=== PATIENT | female | born 1960 | race Caucasian/White ===

== ENCOUNTER 2024-12-20 16:14 | Inpatient (IN) | payer OTHER ==
[2024-12-20] MEDS ORDERED: ONDANSETRON 4 MG/2 ML VIAL ONE ×2 (16:31→19:12)
[2024-12-20] MEDS ORDERED: FAMOTIDINE 20 MG/2 ML VIAL IV ONE (16:31)
[2024-12-20] MEDS ORDERED: NA CHLORIDE 0.9% 1,000 ML ONE (16:32)
[2024-12-20 16:48] LABS: Absolute Lymphocytes (CBC) 2.3 K/uL (0.7-4.9); Hematocrit 35.6 % (36.0-45.0); Hemoglobin 11.6 g/dL (12.0-15.0); MCH 23.3 pg (27.0-35.0); MCHC 32.5 g/dL (32.0-36.0); MCV 71.8 fL (80-100); MPV 8.5 fL (7.6-11.3); Nucleated RBC Absolute Count 0.0 (0-0); Nucleated Red Blood Cells % 0.1 % (0-0); RBC Red Blood Cell Count 4.95 M/uL (3.86-4.86); White Blood Count 9.10 thou/uL (4.3-10.9)
[2024-12-20 17:06] LABS: ALT/SGPT 15 U/L (13-56); Albumin 3.5 g/dL (3.4-5.0); Albumin/Globulin Ratio 0.9 (1.1-1.8); Alkaline Phosphatase 71 U/L (45-117); Anion Gap 10.1 mEq/L (5.0-15.0); BUN Blood Urea Nitrogen 30 mg/dL (7-18); Globulin 3.7 g/dL (2.3-3.5); Glucose Level 132 mg/dL (74-106); Lipase 38 U/L (13-75); Potassium 4.1 mEq/L (3.5-5.1)
[2024-12-20 17:12] LABS: AST/SGOT < 10 U/L (15-37)
[2024-12-20] MEDS ORDERED: NA CHLORIDE 0.9% 250 ML ONE (18:09)
[2024-12-20] MEDS ORDERED: PANTOPRAZOLE 40 MG INJ ONE (18:09)
--- NOTE | 2024-12-20 18:21 | RAD REPORT ---
EXAM:Abdomen Angio CLINICAL HISTORY: Abdominal pain. Gastrointestinal bleeding TECHNIQUE: Computed tomography angiography of the abdomen obtained. MIPS reconstruction performed.. 100 cc Isovu e-370 administered intravenously. Axial, sagittal and coronal reconstructions were obtained. One or more of the following dose reduction techniques were used: Automated exposure control, adjustment of the mA and kV according to patient size, and iterative reconstruction. Unless otherwise specified, incidental findings do not require dedicated imaging follow-up. COMPARISON: 2013. FINDINGS: No abnormal density within the stomach, small bowel or large bowel Cholecystectomy. Liver, spleen, pancreas and right adrenal gland unremarkable . 2.1 cm left adrenal nodule Hounsfield unit 79. This has developed since 2014 Parapelvic renal cysts. Hysterectomy. No adnexal mass. No evidence of diverticulitis Spondylosis lumbar spine IMPRESSION: No evidence of active gastrointestinal bleeding during this examination 2.1 cm left adrenal nodule. This probably represents an adenoma. Recommend a nonemergent chemical pedro ft MRI
--- NOTE | 2024-12-20 18:21 | RAD REPORT ---
EXAMINATION: CT ABDOMEN AND PELVIS WITHOUT CONTRAST CLINICAL INDICATION: Abdominal pain. Gastrointestinal bleeding TECHNIQUE: CT abdomen and pelvis was performed, as per department protocol. IV contrast and oral was not administered.Axial, sagittal and coronal reconstructions were obtained. One or more of the following dose reduction techniques were used: Automated exposure control, adjustment of the mA and/o r kV according to the patient size, and/or iterative reconstruction. Unless otherwise specified, incidental findings do not require dedicated imaging follow-up. [id number]. COMPARISON: 2013. FINDINGS: No abnormal density within the stomach, small bowel or large bowel Cholecystectomy. Liver, spleen, pancreas and right adrenal gland unremarkable . 2.1 cm left adrenal nodule Hounsfield unit 79. This has developed since 2014 Parapelvic renal cysts. Hysterectomy. No adnexal mass. No evidence of diverticulitis Spondylosis lumbar spine IMPRESSION: No evidence of active gastrointestinal bleeding during this examination 2.1 cm left adrenal nodule. This probably represents an adenoma. Recommend a nonemergent chemical pedro ft MRI
--- NOTE | 2024-12-20 18:22 | RAD REPORT ---
EXAM:Pelvis Angio CLINICAL HISTORY: Gastrointestinal bleeding. Abdominal pain TECHNIQUE: Computed tomography angiography of the pelvis obtained. MIPS reconstruction performed.. 100 cc Isovue -370 administered intravenously. Axial, sagittal and coronal reconstructions were obtained. One or more of the following dose reduction techniques were used: Automated exposure control, adjustment of the mA and kV according to patient size, and iterative reconstruction. Unless otherwise specified, incidental findings do not require dedicated imaging follow-up. COMPARISON: 2013. FINDINGS: No abnormal density within the stomach, small bowel or large bowel Cholecystectomy. Liver, spleen, pancreas and right adrenal gland unremarkable . 2.1 cm left adrenal nodule Hounsfield unit 79. This has developed since 2014 Parapelvic renal cysts. Hysterectomy. No adnexal mass. No evidence of diverticulitis Spondylosis lumbar spine IMPRESSION: No evidence of active gastrointestinal bleeding during this examination 2.1 cm left adrenal nodule. This probably represents an adenoma. Recommend a nonemergent chemical pedro ft MRI
--- NOTE | 2024-12-20 18:27 | ER ---
Nurse's Notes [facility] Name: Radha Meyer Age: 64 yrs Sex: Female : 1960 Arrival Date: 12/20/2024 Time: 16:14 Bed 6 Private MD: Diagnosis: Hematemesis;Anemia, unspecified;Upper abdominal pain, unspecified Presentation: 12/20 16:16 Chief complaint: EMS states: TONED OUT DUE TO PATIENT HAVING EPIGASTRIC PAIN ONSET 2 cm10 DAYS. PT ALSO REPORTS HAVING COFFEE GROUND EMESIS. Coronavirus screen: Client denies travel out of the [place] in the last 14 days. Ebola Screen: Patient denies travel to an Ebola-affected area in the 21 days before illness onset. Initial Sepsis Screen: Does the patient meet any 2 criteria? No. Patient's initial sepsis screen is negative. Does the patient have a suspected source of infection? No. Patient's initial sepsis screen is negative. Risk Assessment: Do you want to hurt yourself or someone else? Patient reports no desire to harm self or others. Onset of symptoms was December 20, 2024. 16:16 Method Of Arrival: EMS: [facility] cm10 16:16 Acuity: KATINA 3 cm10 Triage Assessment: 16:20 General: Appears in no apparent distress. comfortable, Behavior is calm, cooperative. cm10 Pain: Complains of pain in epigastric area Pain does not radiate. Pain currently is 7 out of 10 on a pain scale. Neuro: No deficits noted. Level of Consciousness is awake, alert, obeys commands, Oriented to person, place, time, situation, Appropriate for age. Respiratory: No deficits noted. Airway is patent Respiratory effort is even, unlabored, Respiratory pattern is regular, symmetrical. GI: Reports epigastric pain, Coffee ground emesis. Historical: - Allergies: 16:19 No Known Allergies; cm10 - PMHx: 16:19 Asthma; CHRONS; diabetes mellitus; RLS; Ulcers; cm10 - PSHx: 16:19 Appendectomy; Cholecystectomy; Tonsillectomy; Total abdominal hysterectomy; cm10 - Immunization history:: Adult Immunizations up to date. - Infectious Disease History:: Denies. - Social history:: Smoking status: Patient denies any tobacco usage or history of. - Family history:: not pertinent. - Hospitalizations: : No recent hospitalization is reported. Screenin:[address] [facility] ED Fall Risk Assessment (Adult) History of falling in the last 3 months, cm10 including since admission No falls in past 3 months (0 pts) Confusion or Disorientation No (0 pts) Intoxicated or Sedated No (0 pts) Impaired Gait No (0 pts) Mobility Assist Device Used No (0 pt) Altered Elimination No (0 pt) Score/Fall Risk Level 0 - 2 = Low Risk Oriented to surroundings, Maintained a safe environment, Hourly rounding (assess needs \T\ fall precautionary measures) done. Abuse screen: Denies threats or abuse. Denies injuries from another. Nutritional screening: No deficits noted. Tuberculosis screening: No symptoms or risk factors identified. Assessment: 16:30 General: SEE TRIAGE NOTE. bp 18:44 Reassessment: Patient appears in no apparent distress at this time. Patient is alert, bp oriented x 3, equal unlabored respirations, skin warm/dry/pink. 19:27 Reassessment: Patient appears in no apparent distress at this time. Patient and/or bm8 family updated on plan of care and expected duration. Pain level reassessed. Patient is alert, oriented x 3, equal unlabored respirations, skin warm/dry/pink. Patient states feeling better. Patient states symptoms have improved. Pain: Complains of pain in left upper quadrant and left lower quadrant Pain currently is 4 out of 10 on a pain scale. Neuro: No deficits noted. Level of Consciousness is awake, alert, obeys commands, Oriented to person, place, time, situation, Appropriate for age. Cardiovascular: Denies chest pain, Heart tones S1 S2 present Capillary refill < 3 seconds in bilateral fingers Patient's skin is warm and dry. Respiratory: Airway is patent Respiratory effort is even, unlabored, Respiratory pattern is regular, symmetrical, Breath sounds are clear bilaterally. GI: Abdomen is non-distended, obese, Bowel sounds present X 4 quads. Abdomen is tender to palpation in left upper quadrant and left lower quadrant Reports nausea, Pain is 4 out of 10 on a pain scale. : No signs and/or symptoms were reported regarding the genitourinary system. EENT: No signs and/or symptoms were reported regarding the EENT system. Derm: No signs and/or symptoms reported regarding the dermatologic system. Musculoskeletal: No signs and/or symptoms reported regarding the musculoskeletal system. Vital Signs: 16:16 BP 100 / 65; Pulse 83; Resp 16; Temp 98.5(O); Pulse Ox 95% on R/A; Weight 81.65 kg; cm10 Height 5 ft. 6 in. ; Pain 7/10; 18:41 BP 98 / 56; Pulse 94; Resp 16; Pulse Ox 97% ; bp 19:27 BP 93 / 56; Pulse 75; Resp 17; Temp 98.5; Pulse Ox 97% ; Pain 4/10; bm8 21:18 BP 92 / 34; Pulse 66; Resp 18; Temp 98.5; Pulse Ox 94% ; Pain 4/10; bm8 16:16 Body Mass Index 29.05 (81.65 kg, 167.64 cm) cm10 16:16 Pain Scale: Adult cm10 19:27 Pain Scale: Adult bm8 21:18 Pain Scale: Adult bm8 Mateo Coma Score: 19:27 Eye Response: spontaneous(4). Motor Response: obeys commands(6). Verbal Response: bm8 oriented(5). Total: 15. ED Course: 16:15 Patient arrived in ED. cm10 16:15 Joaquin Mathis MD is Attending Physician. rn 16:19 Triage completed. cm10 16:20 Arm band placed on right wrist. Patient placed in an exam room, on a stretcher. cm10 16:21 Patient has correct armband on for positive identification. Bed in low position. Call cm10 light in reach. Side rails up X2. 16:22 Bella Easton, SHERRIE is Primary Nurse. cm10 16:42 Lactate w/ 2H reflex if indic. Sent. cm10 16:42 Type And Screen Sent. cm10 16:42 CBC with Diff Sent. cm10 16:42 CMP Sent. cm10 16:42 Lipase Sent. cm10 16:42 Initial lab(s) drawn, by wi, sent to lab. Inserted saline lock: 22 gauge in left cm10 forearm, using aseptic technique. Blood collected. Flushed with 10 mL NS. 16:42 Missed attempt(s): 20 gauge in left forearm. Bleeding controlled, band aid applied, cm10 catheter tip intact. 17:45 CT Abdomen - Angio In Process Unspecified. EDMS 17:45 Pelvis Angio In Process Unspecified. EDMS 17:45 Abdomen In Process Unspecified. EDMS 18:26 Julio Garcia, RN is Hospitalizing Provider. rn 19:00 Report received from olya rn. Client placed on continuous cardiac and bm8 pulse oximetry monitoring. NIBP monitoring applied. Pulse ox on. NIBP on. Door closed. Noise minimized. Warm blanket given. Pillow given. Verbal reassurance given. Head of bed elevated. 19:00 No provider procedures requiring assistance completed. Patient maintains SpO2 bm8 saturation greater than 95% on room air. 19:11 Attending Physician role handed off by Joaquin Mathis MD sp4 19:11 Osman Garcia MD is Attending Physician. sp4 21:23 Patient admitted, IV remains in place. bm8 21:24 Provided Education on: need for admission. bm8 Administered Medications: 16:41 Drug: Famotidine IVP 20 mg IVP once; dilute with 10 mL 0.9% NaCl; give over 2 minutes bp Route: IVP; Site: left forearm; 19:29 Follow up: Response: No adverse reaction bm8 16:41 Drug: Ondansetron IVP 4 mg IVP once; over 2 minutes Route: IVP; Site: left forearm; bp 19:29 Follow up: Response: No adverse reaction bm8 16:41 Drug: NS 0.9% IV 1000 ml IV at 1 bolus Per protocol; to be given as a bolus over 60 bp minutes Route: IV; Rate: 1 bolus; Site: left forearm; 19:29 Follow up: Response: No adverse reaction; IV Status: Completed infusion bm8 17:45 Drug: Pantoprazole IV 8 mg/hr IV at 25 ml/hr continuous; (Standard dilution is 80 mg in bp 250 mL NS) Route: IV; Rate: 25 ml/hr; Site: left forearm; 21:24 Follow up: Response: No adverse reaction; IV Status: Infusion continued upon admission bm8 18:41 Drug: NS 0.9% IV 500 ml 500 ml IV at 1 bolus once; to be given as a bolus over 30 bp minutes Volume: 500 ml; Route: IV; Rate: 1 bolus; Site: left forearm; 19:29 Follow up: Response: No adverse reaction; IV Status: Completed infusion bm8 19:27 Drug: Ondansetron IVP 8 mg IVP once; over 2 minutes Route: IVP; Site: left forearm; bm8 21:24 Follow up: Response: No adverse reaction bm8 Medication: 16:21 VIS not applicable for this client. cm10 Outcome: 18:26 Decision to Hospitalize by Provider. rn 21:22 Admitted to Med/surg accompanied by tech, via stretcher, room 215, with chart, bm8 21:22 Condition: stable 21:22 Instructed on follow up and referral plans. the need for admit, Demonstrated understanding of instructions, follow-up care, medications, 21:25 Patient left the ED. bm8 Signatures: Dispatcher [employer] EDMS Joaquin Mathis MD MD rn Peltier, Brian, RN RN Osman Olivera MD MD sp4 Bella Easton RN RN cm10 Navin Lainez RN RN bm8
--- NOTE | 2024-12-20 18:27 | EDPHYS ---
Physician Documentation [facility] Name: Radha Meyer Age: 64 yrs Sex: Female : 1960 Arrival Date: 12/20/2024 Time: 16:14 Bed 6 Private MD: ED Physician Osman Garcia HPI: 12/20 16:23 This 64 yrs old Female presents to ER via EMS with complaints of Epigastric Pain. rn 16:23 Patient reports epigastric abdominal pain, nausea and vomiting, reports coffee-ground rn emesis for 2 days, no longer vomiting blood today. Reports generalized weakness and malaise. No fever or chills. Has had gastric ulcers before. Denies dark stool. Reports has Crohn's disease. Historical: - Allergies: 16:19 No Known Allergies; cm10 - PMHx: 16:19 Asthma; CHRONS; diabetes mellitus; RLS; Ulcers; cm10 - PSHx: 16:19 Appendectomy; Cholecystectomy; Tonsillectomy; Total abdominal hysterectomy; cm10 - Immunization history:: Adult Immunizations up to date. - Infectious Disease History:: Denies. - Social history:: Smoking status: Patient denies any tobacco usage or history of. - Family history:: not pertinent. - Hospitalizations: : No recent hospitalization is reported. ROS: 16:23 Constitutional: Negative for fever, chills, and weight loss, Cardiovascular: Negative rn for chest pain, palpitations, and edema, Respiratory: Negative for shortness of breath, cough, wheezing, and pleuritic chest pain, Abdomen/GI: Positive for epigastric abdominal pain with nausea and vomiting MS/Extremity: Negative for injury and deformity, Neuro: Positive for generalized weakness Exam: 16:23 Constitutional: This is a well developed, well nourished patient who is awake, alert, rn and in no acute distress. Cardiovascular: Regular rate and rhythm. No pulse deficits. Respiratory: No increased work of breathing, no retractions or nasal flaring. Abdomen/GI: Soft, no focal tenderness or rebound. No peritoneal signs. 16:34 ECG was reviewed by the Attending Physician. rn Vital Signs: 16:16 BP 100 / 65; Pulse 83; Resp 16; Temp 98.5(O); Pulse Ox 95% on R/A; Weight 81.65 kg; cm10 Height 5 ft. 6 in. ; Pain 7/10; 18:41 BP 98 / 56; Pulse 94; Resp 16; Pulse Ox 97% ; bp 19:27 BP 93 / 56; Pulse 75; Resp 17; Temp 98.5; Pulse Ox 97% ; Pain 4/10; bm8 21:18 BP 92 / 34; Pulse 66; Resp 18; Temp 98.5; Pulse Ox 94% ; Pain 4/10; bm8 16:16 Body Mass Index 29.05 (81.65 kg, 167.64 cm) cm10 16:16 Pain Scale: Adult cm10 19:27 Pain Scale: Adult bm8 21:18 Pain Scale: Adult bm8 Mateo Coma Score: 19:27 Eye Response: spontaneous(4). Motor Response: obeys commands(6). Verbal Response: bm8 oriented(5). Total: 15. MDM: 16:15 Medical Screening Exam initiated rn 18:25 Differential diagnosis: Nonspecific abd pain, gastritis, viral gastroenteritis, rn gastroenteritis, upper GI bleed, gastritis, gastric ulcers. Data reviewed: vital signs, nurses notes, lab test result(s), radiologic studies, CT scan, and as a result, I will admit patient. Consideration of Admission/Observation Patient was admitted/placed on observation. Escalation of care including admission/observation considered. Care significantly affected by the following chronic conditions: Crohn's, diabetes, gastric ulcers. Counseling: I had a detailed discussion with the patient and/or guardian regarding the historical points, exam findings, and any diagnostic results supporting the discharge/admit diagnosis, lab results, radiology results, the need for further work-up and treatment in the hospital. Response to treatment: the patient's symptoms have mildly improved after treatment, and as a result, I will admit patient. 19:05 ED course: I have notified GI of consultation, have not heard back. Will be admitted to rn hospitalist service as is stable GI bleed patient that has not have active hematemesis in the last [address] angiogram does not show active bleed.. 12/20 16:21 Order name: CBC with Diff; Complete Time: 17:17 rn 12/20 16:21 Order name: CMP; Complete Time: 17:17 rn 12/20 16:21 Order name: Lipase; Complete Time: 17:17 rn 12/20 16:21 Order name: Type And Screen; Complete Time: 17:51 rn 12/20 16:22 Order name: Lactate w/ 2H reflex if indic.; Complete Time: 17:17 rn 12/20 20:16 Order name: CBC with Automated Diff EDMS 12/20 20:16 Order name: CBC with Automated Diff EDMS 12/20 20:16 Order name: CBC with Automated Diff EDMS 12/20 20:16 Order name: CBC with Automated Diff EDMS 12/20 20:16 Order name: Comprehensive Metabolic Panel EDMS 12/20 20:16 Order name: Comprehensive Metabolic Panel EDMS 12/20 20:16 Order name: Comprehensive Metabolic Panel EDMS 12/20 20:16 Order name: Comprehensive Metabolic Panel EDMS 12/20 20:16 Order name: Magnesium EDMS 12/20 20:16 Order name: Magnesium EDMS 12/20 20:16 Order name: Magnesium EDMS 12/20 20:16 Order name: Magnesium EDMS 12/20 16:21 Order name: CT Abdomen - Angio; Complete Time: 18:25 rn 12/20 16:37 Order name: Pelvis Angio; Complete Time: 18:25 EDMS 12/20 16:37 Order name: Abdomen ; Complete Time: 18:25 EDMS 12/20 16:21 Order name: IV Saline Lock; Complete Time: 16:41 rn 12/20 16:21 Order name: Labs collected and sent; Complete Time: 16:41 rn EC:34 Rate is 78 beats/min. Rhythm is regular. QRS [place] is Normal. [place] interval is normal. QRS rn interval is normal. QT interval is normal. No Q waves. T waves are Normal. No ST changes noted. Clinical impression: NSR w/ Non-specific ST/T Changes. Reviewed by me. Administered Medications: 16:41 Drug: Famotidine IVP 20 mg IVP once; dilute with 10 mL 0.9% NaCl; give over 2 minutes bp Route: IVP; Site: left forearm; 19:29 Follow up: Response: No adverse reaction bm8 16:41 Drug: Ondansetron IVP 4 mg IVP once; over 2 minutes Route: IVP; Site: left forearm; bp 19:29 Follow up: Response: No adverse reaction bm8 16:41 Drug: NS 0.9% IV 1000 ml IV at 1 bolus Per protocol; to be given as a bolus over 60 bp minutes Route: IV; Rate: 1 bolus; Site: left forearm; 19:29 Follow up: Response: No adverse reaction; IV Status: Completed infusion bm8 17:45 Drug: Pantoprazole IV 8 mg/hr IV at 25 ml/hr continuous; (Standard dilution is 80 mg in bp 250 mL NS) Route: IV; Rate: 25 ml/hr; Site: left forearm; 21:24 Follow up: Response: No adverse reaction; IV Status: Infusion continued upon admission bm8 18:41 Drug: NS 0.9% IV 500 ml 500 ml IV at 1 bolus once; to be given as a bolus over 30 bp minutes Volume: 500 ml; Route: IV; Rate: 1 bolus; Site: left forearm; 19:29 Follow up: Response: No adverse reaction; IV Status: Completed infusion bm8 19:27 Drug: Ondansetron IVP 8 mg IVP once; over 2 minutes Route: IVP; Site: left forearm; bm8 21:24 Follow up: Response: No adverse reaction bm8 Disposition: 12/21 00:29 Chart complete. sp4 Disposition Summary: 12/20/24 18:26 Hospitalization Ordered Notes: Hospitalization Status: Inpatient Admission rn Provider: Julio Garcia rn [facility] (Inpatient) rn Condition: Stable rn Problem: new rn Symptoms: have improved rn Bed/Room Type: Standard rn Room Assignment: 215(12/20/24 20:16) rv1 Diagnosis - Hematemesis rn - Anemia, unspecified rn - Upper abdominal pain, unspecified rn Forms: - Medication Reconciliation Form rn - SBAR form rn - Leadership Thank You Letter rn Signatures: Dispatcher [employer] EDMS Joaquin Mathis MD MD rn Peltier, Brian, RN RN Anat Lees rv1 Osman Garcia MD MD sp4 Bella Easton, RN RN cm10 Navin Lainez, RN RN bm8 Corrections: (The following items were deleted from the chart) 12/20 16:22 16:21 CBC+H.LAB.BRZ ordered. EDMS EDMS 16:22 16:21 COMPREHENSIVE METABOLIC PANEL+C.LAB.BRZ ordered. EDMS EDMS 16:22 16:21 LIPASE+C.LAB.BRZ ordered. EDMS EDMS 16:22 16:21 TYPE AND SCREEN+BB.LAB.BRZ ordered. EDMS EDMS 20:16 18:26 rn rv1
--- NOTE | 2024-12-20 20:13 | P.HP ---
Certification for Inpatient Patient admitted to: Observation With expected LOS: <2 Midnights Patient will require the following post-hospital care: None Practitioner: I am a practitioner with admitting privileges, knowledge of patient current condition, hospital course, and medical plan of care. Services: Services provided to patient in accordance with Admission requirements found in Title 42 Section 412.3 of the Code of Federal Regulations Patient History Date of Service: 12/20/24 Reason for admission: Hematemesis,MELINDA History of Present Illness: Patient is a pleasant 64 years old female with past medical history of Crohn's disease, type 2 diabetes mellitus, gastric ulcers, cataracts, diabetic neuropathy, brought to the ER today complaining of vomiting coffee ground emesis x 2 days. Patient states she has been vomiting coffee-ground emesis for the past 2 days moderate to large amount, states today her vomiting was also associated with weakness, dizziness and abdominal pain which then prompted for her to report to ER. Patient states last time she had an endoscopy, she was diagnosed with gastric ulcers. Patient denies of drinking alcohol, denies of black tarry stool, or irregular bowel movement. Denies of chest pain or shortness of breath. According from report received from ER practitioner, states Dr. Silvestre was consulted, and patient is scheduled for EGD in AM. Patient denies of nausea or vomiting at this time, states her abdomen pain is much better at this time after receiving pain medication. Patient in no acute distress this time. Present H&H 11.6/35.6, BUN 30, creatinine 1.42, GFR 41. Allergies No Known Drug Allergies Allergy (Verified 04/24/14 23:02) Unknown Home Medications: Esomeprazole Mag Trihydrate [Nexium] 40 mg PO BID #60 10/04/12 Citalopram Hydrobromide [Celexa] 40 mg PO BEDTIME 02/08/14 Doxepin HCl [Sinequan] 25 mg PO BEDTIME PRN PRN 12/20/24 Empagliflozin [Jardiance] 25 mg PO DAILY 12/20/24 Gabapentin 300 mg PO BID 12/20/24 Potassium Chloride 10 meq PO DAILY 12/20/24 Simvastatin [Zocor] 40 mg PO BEDTIME 12/20/24 Spironolactone [Aldactone] 25 mg PO BID 12/20/24 Temazepam [Restoril] 15 mg PO BEDTIME PRN PRN 12/20/24 tadalafiL [Tadalafil] 5 mg PO DAILY 12/20/24 - Past Medical/Surgical History Diabetic: Yes -: Chron's disease, DM, HTN, Asthma, GERD, Renal cyst -: fibromyalgia -: Cataract. -: chronic bronchitis -: Diabetic neuropathy. -: Crohn's disease. -: R knee replacement -: Hysterectomy, tonsilectomy -: Appendectomy. -: Cholecystectomy. - Family History Father -: Heart disease, Lung disease, Diabetes Mother -: Lung disease Notes: emphysema - Social History Smoking Status: Never smoker Alcohol use: No CD- Drugs: No Caffeine use: Yes Place of Residence: Home Review of Systems 10-point ROS is otherwise unremarkable General: Weakness, Other (Dizziness.) Gastrointestinal: Other (Coffee-ground emesis x 2 days.) Physical Examination - Physical Exam General: Alert, In no apparent distress, Oriented x3, Cooperative HEENT: Atraumatic, Normocephalic, PERRLA, Mucous membr. moist/pink Neck: Supple, 2+ carotid pulse no bruit, No LAD, Without JVD or thyroid abnormality Respiratory: Clear to auscultation bilaterally, Normal air movement Cardiovascular: No edema, Normal pulses, Regular rate/rhythm, Normal S1 S2, Abnormal S3, No gallops, No rubs, No murmurs Capillary refill: <2 Seconds Gastrointestinal: Normal bowel sounds, Soft and benign, Non-distended, W/out hepatomegaly, No ascites, No tenderness, No masses, No rebound, No guarding Musculoskeletal: No clubbing, No swelling, No contractures, No erythema, No tenderness, No warmth Integumentary: No rashes, No breakdown, No significant lesion, No tenderness/swelling, No erythema, No warmth, No cyanosis Neurological: Normal gait, Normal speech, Normal strength at 5/5 x4 extr, Normal tone, Sensation intact, Cranial nerves 3-12 intact, Normal reflexes 2+, Normal affect Lymphatics: No axilla or inguinal lymphadenopathy - Studies Laboratory Data (last 24 hrs) 12/20/24 12/20/24 16:38 16:38 WBC 9.10 Hgb 11.6 L Hct 35.6 L Plt Count 251 Sodium 141 Potassium 4.1 BUN 30 H Creatinine 1.42 H Glucose 132 H Total Bilirubin 0.3 AST < 10 L ALT 15 Alkaline Phosphatase 71 Lipase 38 Female Exam - Breasts Breasts: Normal configuration, Normal contours, Symmetrical Assessment and Plan - Plan Patient brought to ER complaining of vomiting coffee-ground emesis x 2 days with associated weakness, dizziness, and abdominal pain. Patient is admitted with diagnosis of hematemesis, and MELINDA. (1)Hematemesis / MELINDA. -Consult GI Dr. Silvestre. -N.p.o. after midnight scheduled for EGD in AM. -Protonix infusion at 25 mL/ hr. -IV LR at 75 mL/ hr. -Morphine 4 mg IV as needed every 4 hours for pain. (2)Insomnia. Patient states she has not been able to get adequate amount of sleep for about a week, requested for medication to help her sleep but not melatonin. Patient requested Ambien. -Ambien 5 mg p.o. as needed at bedtime. (3)Chronic type 2 diabetes mellitus. -ACHS with moderate sliding scale coverage with no NPO. -Accu-Chek Q6 with mild sliding scale coverage when NPO. -Will resume patient home medication after reconciled. (4)Explained the entire treatment plan to the patient, solicited questions answered and voiced understanding. Discharge Plan: Home Plan to discharge in: 48 Hours - Advance Directives Does patient have a Living Will: No Does patient have a Durable POA for Healthcare: No - Code Status/Comfort Care Code Status Assessed: Yes Code Status: Full Code Critical Care: No Time Spent Managing Pts Care (In Minutes): 55
[2024-12-20] MEDS: PANTOPRAZOLE INJ 80 MG in NA CHLORIDE 0.9% 250 ML IV SCH (21:00)
[2024-12-20] MEDS: INSULIN REGULAR (HUMAN) 100 UNIT/ML SQ SCH (21:00)
[2024-12-20] MEDS: Ringers Lactate 1,000 ML IV SCH (21:45)
[2024-12-20 22:03] VITALS: BMI 32.5
[2024-12-20] MEDS: ZOLPIDEM TARTRATE 5 MG TABLET PO PRN (22:37)
[2024-12-21 04:56] LABS: Absolute Lymphocytes (CBC) 1.9 K/uL (0.7-4.9); Hematocrit 35.5 % (36.0-45.0); Hemoglobin 11.1 g/dL (12.0-15.0); MCH 22.6 pg (27.0-35.0); MCHC 31.1 g/dL (32.0-36.0); MCV 72.5 fL (80-100); MPV 8.9 fL (7.6-11.3); Nucleated RBC Absolute Count 0.0 (0-0); Nucleated Red Blood Cells % 0.0 % (0-0); RBC Red Blood Cell Count 4.90 M/uL (3.86-4.86); White Blood Count 5.90 thou/uL (4.3-10.9)
[2024-12-21 05:13] LABS: Albumin 3.2 g/dL (3.4-5.0); Albumin/Globulin Ratio 1.1 (1.1-1.8); Alkaline Phosphatase 64 U/L (45-117); Anion Gap 11.0 mEq/L (5.0-15.0); BUN Blood Urea Nitrogen 24 mg/dL (7-18); Globulin 3.0 g/dL (2.3-3.5); Glucose Level 91 mg/dL (74-106); Magnesium 1.8 mg/dL (1.6-2.4); Potassium 4.0 mEq/L (3.5-5.1)
[2024-12-21 05:16] LABS: ALT/SGPT < 14 U/L (13-56); AST/SGOT < 10 U/L (15-37)
[2024-12-21] MEDS: INSULIN REGULAR (HUMAN) 100 UNIT/ML SQ SCH (05:18)
[2024-12-21 07:15] LABS: Ferritin 9.6 ng/mL (8-252); Iron 29.0 ug/dL (50-170); Transferrin 262.0 mg/dL (200-360)
--- NOTE | 2024-12-21 07:41 | P.PN ---
Date of Service: 12/21/24 Subjective: feeling better today reports intermittent abdominal pain for a few months has prior history of gastric ulcers, crohns disease nausea/vomiting resolved prior to admission Physical Exam: GEN: Alert, oriented, NAD CV: Regular rate and rhythm, no edema Pulm: Nonlabored respirations on room air, clear bilaterally ABD: soft, epigastric tenderness, nondistended Neuro: Normal speech, normal affect Problem List: Hematemesis Iron deficiency anemia MELINDA Insomnia NIDDM2 with diabetic neuropathy Hypertension Asthma Hx of Crohn's disease Hx of GERD/Gastric ulcers Hematemesis Iron deficiency anemia Hx of Crohn's disease Hx of GERD/Gastric ulcers on admission, presents with coffee ground emesis for 2 days. Moderate-Large volume per patient. Associated with weakness, dizziness, abd pain. Reports diagnosed with gastric ulcers last time she got EGD iron studies consistent with iron deficiency anemia. Iron 29, tsat% 8% Start IV iron (125mg) Dr. Silvestre, GI consulted NPO for EGD to further eval Monitor hgb closely pain control, IVF Protonix drip MELINDA, resolved Cr 1.42 on admission MELINDA quickly resolved with IVF Continue to monitor renal function Continue IVF while NPO Insomnia reports minimal sleep over the last week and requested medication to help her sleep PRN cherylien added on admission per patient request NIDDM2 with diabetic neuropathy Hypertension Asthma confirm home meds, restart as appropriate accu-cheks, SSI VTE: SCD for now GI: Protonix drip Code: Full Dispo: Home Pending EGD, GI recs Time Spent Managing Pts Care (In Minutes): 55
[2024-12-21] MEDS: SOD FERRIC GLUC COMPLX/SUCROSE 125 MG in NA CHLORIDE 0.9% 100 ML IV ONE (11:49)
[2024-12-21] MEDS ORDERED: LIDOCAINE 1% MPF 5 ML VIAL ONE (14:00)
[2024-12-21 14:58] VITALS: O2SAT 97
--- NOTE | 2024-12-21 17:34 | CON ---
Date of Consultation: 12/21/2024 Reason For Consultation: Coffee-ground emesis, upper GI bleed, and midepigastric pain. History Of Present Illness: The patient is a 64-year-old white female with history of diabetes; diab etic neuropathy; hyperlipidemia; asthma; Crohn disease, not on therapy; and peptic ulcer disease. Th e patient presented to the hospital with coffee-ground emesis. She says x10 over the past couple of days associated with nausea, vomiting, and midepigastric pain. She takes Advil 1 tablet b.i.d. for y ears due to "arthritis" all over her body. She has also been experiencing bloating, belching, hiccup s recently and she has a long multiyear history of alternating diarrhea greater than constipation. T he patient states she has never had coffee-ground emesis before. Past Medical History: Significant for diabetes; diabetic neuropathy; hyperlipidemia; asthma; Crohn d isease, not on therapy. The patient states she has not been followed by provider for her Crohn disea se currently. Peptic ulcer disease, restless legs syndrome, appendectomy, cholecystectomy, tonsillec emily, hysterectomy, bilateral salpingo-oophorectomy, right total knee replacement, right total should er replacement recently. She has fibromyalgia, cataract surgery. Medications: At home include Nexium, Celexa, , Jardiance, gabapentin, Zocor, Aldactone, Re storil, . Allergies: NKDA. Social History: She is x4. Five children; 2 boys, 3 girls. No tobacco. No alcohol. Quit alcohol in 2021. Family History: Father is alive at 96; however, she does not know him well. She reports her mother of COPD with history of tobacco use and restless legs syndrome as well. Review of Systems: The patient has coffee-ground emesis x10, midepigastric pain, nausea, vomiting, bloating, belching, h iccups, alternating constipation, diarrhea. She denies any melena, hematochezia, epistaxis, hemoptys is, hematuria, dysuria, polyuria, polydipsia, chest pain, shortness of breath, seizure, syncope, musc le aches, joint aches, backaches. The patient states she has some mild left lower quadrant pain. It happens to her off and on, on occasion. Physical Examination: Vital Signs: She is 5 feet 6 inches, 201 pounds. BMI of 32.5 kg per sq m. Temperature 98.1 degrees Fahrenheit, pulse 71, respirations 18, blood pressure 117/59, O2 saturation 96% to 97% on room air. General: She is an obese female, lying in bed, in no acute distress. Her pain is approximately 7/10 . HEENT: Normocephalic, atraumatic. Anicteric. Pupils equal, round, and reactive to light. Extraocu lar movements intact. Oropharynx is clear. Neck: Supple. No masses. Respirations: Clear to auscultation. Good airway movement. Cardiac: Regular rate and rhythm. . Abdomen: Soft, nondistended, midepigastric tenderness. The patient's a pains currently is 7/10 with the maximum of 10/10 pain. Extremities: No clubbing, cyanosis, or edema. 2+ pulses. No . 5/5 motor sensation to li ght touch. Laboratory Data: The patient has a white count of 5.9, down from 9.1 yesterday; hemoglobin 11.1; hem atocrit 35.5; MCV of 73; platelet count of 214; polys of 60%; lymphocytes 31%; monocytes 7%; eosinoph ils 2%. The patient has sodium 142; potassium 4.0; chloride 111; bicarb 24; BUN of 24; creatinine of 0.98, down from 1.42 yesterday; glucose of 91; calcium of 8.4, magnesium 1.8. Iron saturation low a t 7.9 normal being 8-252. Total bilirubin 0.4, AST less than 10, ALT 114, alkaline phosph atase 64, total protein 6.2, albumin 3.2, lipase 38. Impression: 1. Coffee-ground emesis x10 over the past 2 days with nausea, vomiting, midepigastric pain, maximum 1 0/10, now down to 7/10, associated with bloating, belching, hiccups, alternating diarrhea, constipati on. She also has history of Advil 1 tablet b.i.d. for years secondary to "arthritis all over her bod y.". 2. History of diabetes; diabetic neuropathy; hyperlipidemia; asthma; Crohn disease, not on therapy; r estless legs syndrome; peptic ulcer disease; fibromyalgia; cataract surgery; appendectomy; cholecyste ctomy; hysterectomy, tonsillectomy; bilateral salpingo-oophorectomy; right total knee replacement; ri ght total shoulder replacement. 3. Iron-deficiency anemia with iron saturation of 7.9% and hemoglobin low at 11.1. Recommendations: 1. IV fluids and continue resuscitation. 2. Serial H and H, and transfuse p.r.n. 3. PPI therapy. 4. EGD. 5. Keep the patient n.p.o. 6. Outpatient colonoscopy for history of Crohn disease, iron-deficiency anemia, and mild l eft lower quadrant pain with alternating constipation and diarrhea. GOLD/GRACIELA Voice ID: [id number] Report ID: [id number]
[2024-12-21] MEDS: PANTOPRAZOLE INJ 80 MG in NA CHLORIDE 0.9% 250 ML IV SCH (19:31)
[2024-12-21] MEDS ORDERED: TEMAZEPAM 15 MG CAP PO PRN (20:06)
[2024-12-21] MEDS ORDERED: DOXEPIN HCL 25 MG CAP PO PRN (20:06)
[2024-12-21] MEDS ORDERED: HOME MED 1 EA UNK (Esomeprazole Mag Trihydrate [Nexium] 40 MG Capsule.Dr) PO SCH (21:00)
[2024-12-21] MEDS ORDERED: SIMVASTATIN 40 MG PO SCH (21:00)
[2024-12-21] MEDS: SPIRONOLACTONE 25 MG TABLET PO SCH (21:09)
[2024-12-21] MEDS: CITALOPRAM 10 MG TABLET PO SCH (21:09)
[2024-12-21] MEDS: ATORVASTATIN 20 MG TAB PO SCH (21:09)
[2024-12-21] MEDS: GABAPENTIN 300 MG CAP PO SCH (21:09)
[2024-12-21] MEDS: PRAMIPEXOLE 0.25 MG TAB PO PRN (21:09)
[2024-12-22] MEDS: ACETAMINOPHEN 325 MG TABLET PO PRN (04:23)
[2024-12-22 05:32] LABS: Absolute Lymphocytes (CBC) 2.3 K/uL (0.7-4.9); Hematocrit 32.5 % (36.0-45.0); Hemoglobin 10.3 g/dL (12.0-15.0); MCH 23.0 pg (27.0-35.0); MCHC 31.8 g/dL (32.0-36.0); MCV 72.4 fL (80-100); MPV 9.0 fL (7.6-11.3); Nucleated RBC Absolute Count 0.0 (0-0); Nucleated Red Blood Cells % 0.0 % (0-0); RBC Red Blood Cell Count 4.49 M/uL (3.86-4.86); White Blood Count 5.50 thou/uL (4.3-10.9)
[2024-12-22 05:42] LABS: ALT/SGPT < 14 U/L (13-56); AST/SGOT 13 U/L (15-37); Albumin 3.2 g/dL (3.4-5.0); Albumin/Globulin Ratio 1.0 (1.1-1.8); Alkaline Phosphatase 64 U/L (45-117); Anion Gap 10.9 mEq/L (5.0-15.0); BUN Blood Urea Nitrogen 12 mg/dL (7-18); Globulin 3.1 g/dL (2.3-3.5); Glucose Level 86 mg/dL (74-106); Magnesium 1.7 mg/dL (1.6-2.4); Potassium 3.9 mEq/L (3.5-5.1)
[2024-12-22] MEDS: EMPAGLIFLOZIN 25 MG TABLET PO SCH (09:00)
[2024-12-22] MEDS ORDERED: TADALAFIL 5 MG PO SCH (09:00)
--- NOTE | 2024-12-22 11:55 | P.DS ---
Admission Date: 12/20/24 Discharge Date: 12/22/24 Reason for Admission: Hematemesis,MELINDA Consultations: GI - Dr. Silvestre Brief History of Present Illness: 64 yo F, PMH: Crohn's disease, type 2 diabetes mellitus, gastric ulcers, cataracts, diabetic neuropathy, Patient brought to the ER today complaining of vomiting coffee ground emesis x 2 days. Patient states she has been vomiting coffee-ground emesis for the past 2 days moderate to large amount, states today her vomiting was also associated with weakness, dizziness and abdominal pain which then prompted for her to report to ER. Patient states last time she had an endoscopy, she was diagnosed with gastric ulcers. Patient denies of drinking alcohol, denies of black tarry stool, or irregular bowel movement. Denies of chest pain or shortness of breath. According from report received from ER practitioner, states Dr. Silvester was consulted, and patient is scheduled for EGD in AM. Patient denies of nausea or vomiting at this time, states her abdomen pain is much better at this time after receiving pain medication. Patient in no acute distress this time. Present H&H 11.6/35.6, BUN 30, creatinine 1.42, GFR 41. Hospital Course: Problem List: Hematemesis, resolved MELINDA, resolved Iron deficiency anemia Insomnia NIDDM2 with diabetic neuropathy Hypertension Asthma Hx of Crohn's disease Hx of GERD/Gastric ulcers Physical Exam: GEN: Alert, oriented, NAD CV: Regular rate and rhythm, no edema Pulm: Nonlabored respirations on room air, clear bilaterally ABD: soft, nontender, nondistended Neuro: Normal speech, normal affect Vital Signs/Physical Exam: Temp Pulse Resp BP Pulse Ox 98.6 F 83 16 143/67 H 95 12/22/24 08:00 12/22/24 08:20 12/22/24 08:00 12/22/24 08:20 12/22/24 08:00 Laboratory Data at Discharge: WBC 5.50 thou/uL (4.3-10.9) 12/22/24 04:50 Hgb 10.3 g/dL (12.0-15.0) L 12/22/24 04:50 Hct 32.5 % (36.0-45.0) L 12/22/24 04:50 Plt Count 150 thou/uL (152-406) L D 12/22/24 04:50 Sodium 142 mEq/L (136-145) 12/22/24 04:50 Potassium 3.9 mEq/L (3.5-5.1) 12/22/24 04:50 BUN 12 mg/dL (7-18) 12/22/24 04:50 Creatinine 0.77 mg/dL (0.55-1.02) 12/22/24 04:50 Glucose 86 mg/dL (74-106) 12/22/24 04:50 Magnesium 1.7 mg/dL (1.6-2.4) 12/22/24 04:50 Total Bilirubin 0.3 mg/dL (0.2-1.0) 12/22/24 04:50 AST 13 U/L (15-37) L 12/22/24 04:50 ALT < 14 U/L (13-56) 12/22/24 04:50 Alkaline Phosphatase 64 U/L (45-117) 12/22/24 04:50 Lipase 38 U/L (13-75) 12/20/24 16:38 Home Medications: Citalopram Hydrobromide [Celexa] 40 mg PO BEDTIME 02/08/14 Doxepin HCl [Sinequan*] 25 mg PO BEDTIME PRN PRN 12/20/24 Empagliflozin [Jardiance] 25 mg PO DAILY 12/20/24 Gabapentin 300 mg PO BID 12/20/24 Potassium Chloride 10 meq PO DAILY 12/20/24 Simvastatin [Zocor] 40 mg PO BEDTIME 12/20/24 Spironolactone [Aldactone] 25 mg PO BID 12/20/24 Temazepam [Restoril] 15 mg PO BEDTIME PRN PRN 12/20/24 tadalafiL [Tadalafil] 5 mg PO DAILY 12/20/24 Pramipexole Di-HCl [Pramipexole Dihydrochloride] 0.75 mg PO BIDP PRN 12/21/24 Esomeprazole Mag Trihydrate [Nexium] 40 mg PO BID 30 Days #60 cap 12/22/24 New Medications: Esomeprazole Mag Trihydrate [Nexium] 40 mg PO BID 30 Days #60 cap Physician Discharge Instructions: Physician discharge instructions: Patient presented with coffee ground emesis for 2 days associated with weakness, dizziness, abdominal pain. Patient was evaluated by Dr. Silvestre, GI who recommended EGD to further evaluate. EGD noted Mild diffuse gastritis, few erosions, six polyps, small hiatal hernia. No active bleeding seen. Iron studies were consistent with iron deficiency anemia. (iron 29, tsat% 7.9%). Patients hemoglobin remained stable in 11s without the needed for any blood tra nsfusions. Patient received 1 bag of IV iron (125mg) while hospitalized and is to continue oral iron supplementation on discharge. Repeat iron studies in 2-3 months to re- assess levels. She was noted to have a mild MELINDA on admission while quickly resolved within 24 hours with IV hydration. Patient was feeling better, nausea/vomiting resolved, breathing okay on room air, hemoglobin stable and was deemed stable for discharge. Biopsies were obtained during EGD, results pending upon discharge. Small bowel series was done on day of discharge. Can discuss both results with GI at follow up appointment in a few weeks. Dr. Silvestre had also recommended patient consider outpatient colonoscopy in the near future to further evaluate given history of Crohn's disease, iron deficiency, LLQ pain with intermittent constipation/diarrhea. Medications: Nexium 40 mg daily Ferrous sulfate (over the counter iron supplement) Recommend decreasing ozempic to 5mg. Can discuss increasing dose with PCP in next few weeks once this acute episode resolves. Follow up: PCP 3-5 days GI in the next few weeks Please call to schedule / confirm appointments Followup: Valentin Encinas MD [Primary Care Provider] - 1-2 Weeks Time spent managing pt's care (in minutes): 45
[2024-12-22 11:57] VITALS: BP 197/90; TEMP 98.4
--- NOTE | 2024-12-22 14:30 | RAD REPORT ---
EXAMINATION: Small bowel series CLINICAL INDICATION: Abdominal pain. GI bleed FINDINGS: Contrast enters the colon by approximately one hour and 30 minutes Mucosal folds of the small bowel appear normal. No permanent filling defects, obstructing or constricting lesions seen. Small bowel caliber normal. No fluoroscopy performed. IMPRESSION: Unremarkable exam
== END 2024-12-22 15:02 | disposition home or self-care (01) | DRG 682 ==
LOC: ER 16:14 → 2ND 20:08 → OBSVTOIN 12-22 09:13
PROVIDERS: ADMIT Hospitalist; ATTEND Hospitalist
PROC: 0DB78ZX Excision of Stomach, Pylorus, Via Natural or Artificial Opening Endoscopic, Diagnostic (ICD-10-PCS; 2024-12-21)
PROC: 0DB68ZX Excision of Stomach, Via Natural or Artificial Opening Endoscopic, Diagnostic (ICD-10-PCS; principal; 2024-12-21 14:00)
DX: N17.9 Acute kidney failure, unspecified (principal); K25.4 Chronic or unspecified gastric ulcer with hemorrhage; K29.71 Gastritis, unspecified, with bleeding; K50.90 Crohn's disease, unspecified, without complications; I10 Essential (primary) hypertension; G47.00 Insomnia, unspecified; G25.81 Restless legs syndrome; D50.9 Iron deficiency anemia, unspecified; J45.909 Unspecified asthma, uncomplicated; K31.7 Polyp of stomach and duodenum; K44.9 Diaphragmatic hernia without obstruction or gangrene; K21.9 Gastro-esophageal reflux disease without esophagitis; E11.40 Type 2 diabetes mellitus with diabetic neuropathy, unspecified; Z90.49 Acquired absence of other specified parts of digestive tract; Z90.710 Acquired absence of both cervix and uterus; Z79.84 Long term (current) use of oral hypoglycemic drugs; Z79.899 Other long term (current) drug therapy; Z96.651 Presence of right artificial knee joint
CPT/HCPCS: 36415; 72191; 74175; 74176; 74250; 80053; 82728; 82947; 83540; 83605; 83690; 83735; 84466; 85025; 86850; 86900; 86901; 88305; 88312; 93005; 96361; 96365; 96366; 96375; 99285; G0378; J2003; J2405; J2470; J2704; J2916; J7030; J7050; J7120; Q9967